=== PATIENT | female | born 1965 | race Caucasian/White ===

== ENCOUNTER 2019-11-09 | Emergency (ER) | payer OTHER ==
[~2019-11-09] MED LIST: NORCO1 TA1 PO
[2019-11-09 16:01] LABS: HEMOGLOBIN 12.6 g/dl (12.0-16.0); IMMATURE GRANULOCYTES 0.4 % (0.0-5.0); MEAN CELL VOLUME 87.7 fL CALC (80.0-100.0); MEAN CORPUSCULAR HGB 31.6 pG CALC (26.0-32.0); NEUT# 9.33 thou/uL (2.00-7.15); RED BLOOD COUNT 3.99 mill/uL (4.20-5.60); RED CELL DISTRI WIDTH 12.7 % (11.5-15.5)
[2019-11-09 16:19] LABS: ALKALINE PHOSPHATASE 80 u/l (38-126); AMYLASE 112 u/l (30-110); BILIRUBIN, TOTAL 0.7 mg/dL (0.0-1.4); BUN 15 mg/dL (7-17); BUN/CREATININE RATIO 27 (12-20 (CALC)); CHLORIDE 108 mmol/l (95-108); CREATININE 0.6 mg/dL (0.5-1.0); GFR > 60 ML/MIN (>=60 (CALC)); GFR FOR AFR.AMER. > 60 ML/MIN (>=60 (CALC)); LIPASE 84 u/l (23-300); POTASSIUM 3.9 mmol/l (3.5-5.1); SGOT/AST 27 u/l (14-36); SODIUM 141 mmol/l (137-146); TOTAL PROTEIN 8.1 g/dL (6.3-8.2)
[2019-11-09 16:20] LABS: ANION GAP 19 (6-22 (CALC)); CARBON DIOXIDE 18 mmol/l (22-30)
[2019-11-09] MEDS ORDERED: LIPITOR20 MG PO (18:06)
[2019-11-09] MEDS ORDERED: NORVASC5 M1 PO (18:06)
[2019-11-09] MEDS ORDERED: CIPROFLOXACN500 MG PO (19:05)
[2019-11-09] MEDS ORDERED: METRONIDAZOL500 MG PO (19:05)
[2019-11-09] MEDS ORDERED: LORTAB 5/3255 MG PO (19:05)
== END 2019-11-09 20:18 | disposition home or self-care (01) | DRG 392 ==
PROVIDERS: Family Medicine
DX: K57.30 Diverticulosis of large intestine without perforation or abscess without bleeding (principal); D72.829 Elevated white blood cell count, unspecified; I10 Essential (primary) hypertension; F17.200 Nicotine dependence, unspecified, uncomplicated

== ENCOUNTER 2021-11-12 11:09 | Observation (INO) | payer OTHER ==
[2021-11-12] VITALS (14 sets, daily range): BP systolic 85–181; BP diastolic 46–92
[~2021-11-12] VITALS: Ht 162.6 cm; Wt 88.0 kg
[~2021-11-12 11:09] MED LIST changes: +CIPROFLOXACN500 MG PO; +LIPITOR10 M1 PO; +LORTAB 5/3255 MG PO; +METRONIDAZOL500 MG PO; +NORVASC5 M1 PO
[2021-11-12 17:45] LABS: GFR > 60 ML/MIN (>=60 (CALC)); GFR FOR AFR.AMER. > 60 ML/MIN (>=60 (CALC))
[2021-11-12 17:52] LABS: HEMATOCRIT 38.2 % (37.0-47.0); HEMOGLOBIN 13.5 g/dl (12.0-16.0); IMMATURE GRANULOCYTES 0.3 % (0.0-5.0); MEAN CELL VOLUME 92.3 fL CALC (80.0-100.0); MEAN CORPUSCULAR HGB 32.6 pG CALC (26.0-32.0); MEAN CORPUSCULAR HGB CONC 35.3 g/dL CAL (32.0-36.0); NEUT# 15.15 thou/uL (2.00-7.15); RED BLOOD COUNT 4.14 mill/uL (4.20-5.60); RED CELL DISTRI WIDTH 12.6 % (11.5-15.5)
[2021-11-12 18:09] LABS: ALBUMIN 5.1 g/dL (3.2-5.0); ALKALINE PHOSPHATASE 92 u/l (38-126); ANION GAP 21 (6-22 (CALC)); BILIRUBIN, TOTAL 0.8 mg/dL (0.0-1.4); BUN 16 mg/dL (7-17); BUN/CREATININE RATIO 25 (12-20 (CALC)); CARBON DIOXIDE 18 mmol/l (22-30); CHLORIDE 108 mmol/l (95-108); CREATININE 0.7 mg/dL (0.5-1.0); GFR > 60 ML/MIN (>=60 (CALC)); GFR FOR AFR.AMER. > 60 ML/MIN (>=60 (CALC)); LIPASE 63 u/l (23-300); POTASSIUM 3.9 mmol/l (3.5-5.1); SGOT/AST 33 u/l (14-36); SODIUM 143 mmol/l (137-146); TOTAL PROTEIN 8.8 g/dL (6.3-8.2)
[2021-11-12 19:20] LABS: URINE BLOOD DIPSTICK LARGE (NEGATIVE); URINE GLUCOSE - DIPSTICK NEGATIVE (NEGATIVE); URINE KETONE >=80 mg/dL (NEGATIVE); URINE LEUK ESTERASE NEGATIVE (NEGATIVE); URINE PROTEIN - DIPSTICK 100 mg/dL (NEG-TRACE); URINE SPECIFIC GRAVITY >=1.030; URINE UROBILINOGEN - DIPSTICK 0.2 E.U./dL (0.2)
[2021-11-12 19:22] LABS: URINE BILIRUBIN - DIPSTICK SMALL (NEGATIVE); URINE COLOR DK. YELLOW; URINE NITRITE - DIPSTICK NEGATIVE (Negative); URINE RBC 50-100 RBC/hpf (0-5); URINE SQUAMOUS EPITHELIAL CELL FEW EPI/hpf (0-FEW)
[2021-11-13 04:00] VITALS: BP 118/70
[2021-11-13 06:20] LABS: HEMATOCRIT 32.8 % (37.0-47.0); MEAN CELL VOLUME 95.3 fL CALC (80.0-100.0); MEAN CORPUSCULAR HGB CONC 33.5 g/dL CAL (32.0-36.0); RED BLOOD COUNT 3.44 mill/uL (4.20-5.60); RED CELL DISTRI WIDTH 13.2 % (11.5-15.5)
[2021-11-13 06:36] LABS: ALKALINE PHOSPHATASE 60 u/l (38-126); BUN 15 mg/dL (7-17); BUN/CREATININE RATIO 22 (12-20 (CALC)); CHLORIDE 109 mmol/l (95-108); CREATININE 0.7 mg/dL (0.5-1.0); GFR > 60 ML/MIN (>=60 (CALC)); GFR FOR AFR.AMER. > 60 ML/MIN (>=60 (CALC)); POTASSIUM 3.9 mmol/l (3.5-5.1); SGOT/AST 23 u/l (14-36); SODIUM 139 mmol/l (137-146)
[2021-11-13 06:39] LABS: ALBUMIN 3.8 g/dL (3.2-5.0); ANION GAP 8 (6-22 (CALC)); BILIRUBIN, TOTAL 0.4 mg/dL (0.0-1.4); CARBON DIOXIDE 26 mmol/l (22-30); TOTAL PROTEIN 6.5 g/dL (6.3-8.2)
[2021-11-13 08:00] VITALS: BP 113/44
[2021-11-13 08:45] VITALS: BP 111/53
[2021-11-13] MEDS ORDERED: SG ASA LOW81 M1 PO (09:28)
[2021-11-13] MEDS ORDERED: FISH OIL1 CAP PO (09:30)
[2021-11-13] MEDS ORDERED: MAGNESIUM 250 M1 TAB PO (09:31)
[2021-11-13] MEDS ORDERED: CYANOCOBAL1000 MCG/M SC (09:34)
[2021-11-13 14:19] VITALS: BP 113/44
[2021-11-13 19:00] VITALS: BP 142/62
[2021-11-14 04:00] VITALS: BP 127/60
[2021-11-14 05:57] LABS: HEMATOCRIT 34.8 % (37.0-47.0); HEMOGLOBIN 11.8 g/dl (12.0-16.0); MEAN CELL VOLUME 94.8 fL CALC (80.0-100.0); MEAN CORPUSCULAR HGB 32.2 pG CALC (26.0-32.0); MEAN CORPUSCULAR HGB CONC 33.9 g/dL CAL (32.0-36.0); RED BLOOD COUNT 3.67 mill/uL (4.20-5.60); RED CELL DISTRI WIDTH 13.1 % (11.5-15.5)
[2021-11-14 06:24] LABS: ALBUMIN 4.2 g/dL (3.2-5.0); ALKALINE PHOSPHATASE 71 u/l (38-126); ANION GAP 10 (6-22 (CALC)); BILIRUBIN, TOTAL 0.5 mg/dL (0.0-1.4); BUN 12 mg/dL (7-17); BUN/CREATININE RATIO 16 (12-20 (CALC)); CARBON DIOXIDE 25 mmol/l (22-30); CHLORIDE 108 mmol/l (95-108); CREATININE 0.7 mg/dL (0.5-1.0); GFR > 60 ML/MIN (>=60 (CALC)); GFR FOR AFR.AMER. > 60 ML/MIN (>=60 (CALC)); MAGNESIUM 1.7 mg/dL (1.6-2.3); POTASSIUM 3.6 mmol/l (3.5-5.1); SGOT/AST 27 u/l (14-36); SODIUM 139 mmol/l (137-146); TOTAL PROTEIN 7.1 g/dL (6.3-8.2)
[2021-11-14 08:25] VITALS: BP 166/70
[2021-11-14 14:31] VITALS: BP 130/63
[2021-11-14 14:36] VITALS: BP 88/46
[2021-11-14 19:34] VITALS: BP 136/68
[2021-11-15 03:38] VITALS: BP 161/79
[2021-11-15 05:24] LABS: HEMATOCRIT 34.5 % (37.0-47.0); HEMOGLOBIN 11.7 g/dl (12.0-16.0); MEAN CELL VOLUME 93.5 fL CALC (80.0-100.0); MEAN CORPUSCULAR HGB 31.7 pG CALC (26.0-32.0); MEAN CORPUSCULAR HGB CONC 33.9 g/dL CAL (32.0-36.0); RED BLOOD COUNT 3.69 mill/uL (4.20-5.60); RED CELL DISTRI WIDTH 12.8 % (11.5-15.5)
[2021-11-15 05:46] LABS: ANION GAP 11 (6-22 (CALC)); BUN 10 mg/dL (7-17); BUN/CREATININE RATIO 14 (12-20 (CALC)); CARBON DIOXIDE 25 mmol/l (22-30); CHLORIDE 107 mmol/l (95-108); CREATININE 0.8 mg/dL (0.5-1.0); GFR > 60 ML/MIN (>=60 (CALC)); GFR FOR AFR.AMER. > 60 ML/MIN (>=60 (CALC)); MAGNESIUM 1.6 mg/dL (1.6-2.3); POTASSIUM 3.3 mmol/l (3.5-5.1); SODIUM 140 mmol/l (137-146)
[2021-11-15 08:35] VITALS: BP 164/80
[2021-11-15] MEDS ORDERED: CIPROFLOXACN500 MG PO (13:37)
[2021-11-15] MEDS ORDERED: METRONIDAZOLE500 MG PO (13:38)
[2021-11-15] MEDS ORDERED: ZOFRAN4 MG/TAB PO (13:39)
== END 2021-11-15 14:50 | disposition home or self-care (01) | DRG 872 ==
LOC: ED 11:09 → ED-I 19:19 → MS2 19:31 → ED 19:31 → MS2 11-15 14:50
PROVIDERS: Family Medicine; Nurse Practitioner; ADMIT Internal Medicine; ATTEND Internal Medicine
PROC: 05HM33Z Insertion of Infusion Device into Right Internal Jugular Vein, Percutaneous Approach (ICD-10-PCS; principal; 2021-11-12)
DX: A41.9 Sepsis, unspecified organism (principal); K57.30 Diverticulosis of large intestine without perforation or abscess without bleeding; I10 Essential (primary) hypertension; E78.5 Hyperlipidemia, unspecified; F17.200 Nicotine dependence, unspecified, uncomplicated; Z20.822 Contact with and (suspected) exposure to COVID-19
CPT/HCPCS: G0378; J1650; Q9967

== ENCOUNTER 2022-10-11 14:42 | Observation (INO) | payer SELFPAY ==
[~2022-10-11] VITALS: Ht 162.6 cm; Wt 79.0 kg
[~2022-10-11 14:42] MED LIST changes: +CYANOCOBAL1000 MCG/M SC; +FISH OIL1 CAP PO; +MAGNESIUM 250 M1 TAB PO; +METRONIDAZOLE500 MG PO; +SG ASA LOW81 M1 PO; +ZOFRAN4 MG/TAB PO
--- NOTE | 2022-10-11 14:45 | NUR ---
PATIENT TO ROOM VIA WHEELCHAIR
--- NOTE | 2022-10-11 15:30 | NUR ---
PATIENT NOTES ABDOMINAL PAIN. MD NOTIFIED
[2022-10-11 15:37] LABS: BASO% 0.2 % (0-3); EOS% 0.2 % (0-8); HEMATOCRIT 41.5 % (37.0-47.0); IMMATURE GRANULOCYTES 0.3 % (0.0-5.0); LYMPH% 17.2 % (15-41); MEAN CELL VOLUME 89.6 fL CALC (80.0-100.0); MEAN CORPUSCULAR HGB 32.4 pG CALC (26.0-32.0); MEAN CORPUSCULAR HGB CONC 36.1 g/dL CAL (32.0-36.0); MONO% 7.9 % (2-13); NEUT# 9.25 thou/uL (2.00-7.15); NEUT% 74.2 % (42-76); RED BLOOD COUNT 4.63 mill/uL (4.20-5.60); RED CELL DISTRI WIDTH 12.1 % (11.5-15.5)
[2022-10-11 15:53] LABS: ALBUMIN 5.5 g/dL (3.2-5.0); ALKALINE PHOSPHATASE 76 u/l (38-126); ANION GAP 16 (6-22 (CALC)); BILIRUBIN, TOTAL 0.8 mg/dL (0.02-1.3); BUN 17 mg/dL (7-17); BUN/CREATININE RATIO 21 (12-20 (CALC)); CARBON DIOXIDE 26 mmol/l (22-30); CHLORIDE 96 mmol/l (95-108); CREATININE 0.8 mg/dL (0.5-1.0); GFR FOR AFR.AMER. > 60 ML/MIN (>=60 (CALC)); GFR OTHER RACES > 60 ML/MIN (>=60 (CALC)); POTASSIUM 3.7 mmol/l (3.5-5.1); SGOT/AST 25 u/l (14-36); SODIUM 135 mmol/l (137-146); TOTAL PROTEIN 8.7 g/dL (6.3-8.2)
[2022-10-11 16:00] LABS: LIPASE 126 u/l (23-300)
--- NOTE | 2022-10-11 16:35 | NUR ---
Reassessment of patient completed. No distress noted.
--- NOTE | 2022-10-11 17:30 | NUR ---
Reassessment of patient completed. No distress noted.
--- NOTE | 2022-10-11 18:59 | NUR ---
Reassessment of patient completed. No distress noted.
--- NOTE | 2022-10-11 19:45 | NUR ---
HAND OFF REPORT RECEIVED, PATIENT AWAKE AND ALERT, AWAITING INPATIENT TREATMENT BED, FAMILY AT BEDSIDE.
[2022-10-11 20:09] LABS: URINE BILIRUBIN - DIPSTICK NEGATIVE (NEGATIVE); URINE BLOOD DIPSTICK NEGATIVE (NEGATIVE); URINE COLOR YELLOW; URINE GLUCOSE - DIPSTICK NEGATIVE (NEGATIVE); URINE KETONE 40 mg/dL (NEGATIVE); URINE LEUK ESTERASE SMALL (NEGATIVE); URINE NITRITE - DIPSTICK NEGATIVE (Negative); URINE PH 6.5 (4.5-8.0); URINE PROTEIN - DIPSTICK NEGATIVE (NEG-TRACE); URINE UROBILINOGEN - DIPSTICK 0.2 E.U./dL (0.2)
[2022-10-11 20:16] LABS: URINE RBC 0-2 RBC/hpf (0-5); URINE SQUAMOUS EPITHELIAL CELL FEW EPI/hpf (0-FEW)
--- NOTE | 2022-10-11 22:31 | NUR ---
PATIENT TO ROOM 286 WHEN PORTABLE EMAIL MARKETER AVAILABLE.
[2022-10-12] VITALS (8 sets, daily range): BP systolic 90–208; BP diastolic 54–110
--- NOTE | 2022-10-12 02:16 | NUR ---
PATIENT BROUGHT TO UNIT BY WHEELCHAIR FROM ED, PATIENT AWAKE AND ALERT, NO C/O PAIN OR DISCOMFORT, NO S/S OF DISTRESS NOTED, AMBULATORY WITHOUT ASSISTANCE, VITALS AND WEIGHT TAKEN, PATIENT SETTLED FOR EVENING. RESPIRATIONS EVEN AND UNLABORED ON ROOM AIR.
[2022-10-12 05:53] LABS: BASO% 0.2 % (0-3); EOS% 0.7 % (0-8); IMMATURE GRANULOCYTES 0.4 % (0.0-5.0); LYMPH% 22.6 % (15-41); MEAN CELL VOLUME 92.2 fL CALC (80.0-100.0); MEAN CORPUSCULAR HGB 32.5 pG CALC (26.0-32.0); MEAN CORPUSCULAR HGB CONC 35.2 g/dL CAL (32.0-36.0); MONO% 10.5 % (2-13); NEUT# 6.87 thou/uL (2.00-7.15); NEUT% 65.6 % (42-76); RED BLOOD COUNT 3.48 mill/uL (4.20-5.60); RED CELL DISTRI WIDTH 12.4 % (11.5-15.5)
[2022-10-12 05:55] LABS: HEMATOCRIT 32.1 % (37.0-47.0); HEMOGLOBIN 11.3 g/dl (12.0-16.0)
[2022-10-12 06:25] LABS: ALKALINE PHOSPHATASE 52 u/l (38-126); ANION GAP 10 (6-22 (CALC)); BILIRUBIN, TOTAL 0.5 mg/dL (0.02-1.3); BUN 12 mg/dL (7-17); BUN/CREATININE RATIO 18 (12-20 (CALC)); CARBON DIOXIDE 27 mmol/l (22-30); CHLORIDE 103 mmol/l (95-108); CREATININE 0.7 mg/dL (0.5-1.0); GFR FOR AFR.AMER. > 60 ML/MIN (>=60 (CALC)); GFR OTHER RACES > 60 ML/MIN (>=60 (CALC)); POTASSIUM 3.5 mmol/l (3.5-5.1); SGOT/AST 18 u/l (14-36); SODIUM 136 mmol/l (137-146)
[2022-10-12 06:28] LABS: ALBUMIN 3.6 g/dL (3.2-5.0)
--- NOTE | 2022-10-12 07:33 | NUR ---
Receive report from Gracy MEÉLNDEZ.
--- NOTE | 2022-10-12 08:00 | NUR ---
Alert and oriented patient x3. Resting in bed, stable at the time of this note. Patient does not refer pain at the moment. No distress is observed. Patient reports nausea and discomfort in the stomach. PRN medications are verified. Medicine for nausea is given and Dr. Barrera is informed. Patient is oriented and educated about the nursing plan, fall precautions and medications for today. Patient refers to understanding. Safety and fall precautions in place. Call light within reach.
[2022-10-12] MEDS ORDERED: AMLODIPINE BESY10 MG PO (11:48)
--- NOTE | 2022-10-12 12:00 | NUR ---
Patient resting in bed with eyes closed. High blood pressure at the time of this note. Manual reassessment. Dr. Barrera is informed who issues order for blood pressure medication. Preventive rounds every hour for safety and satisfaction of the patient's needs.
--- NOTE | 2022-10-12 16:00 | NUR ---
Patient resting in bed. Stable at this time. any pain or sob
[2022-10-12 18:37] LABS: HEMATOCRIT 34.2 % (37.0-47.0); HEMOGLOBIN 12.4 g/dl (12.0-16.0)
[2022-10-13 05:14] VITALS: BP 130/75
[2022-10-13 06:44] VITALS: BP 117/68
--- NOTE | 2022-10-13 07:00 | NUR ---
Receive report from [facility].
--- NOTE | 2022-10-13 08:00 | NUR ---
Alert and oriented patient x3. Resting in bed, stable at the time of this note. Patient does not refer pain at the moment. No distress is observed. Patient is oriented and educated about the nursing plan, fall precautions and medications for today. Patient refers to understanding. Safety and fall precautions in place. Call light within reach.
[2022-10-13 08:12] VITALS: BP 117/68
--- NOTE | 2022-10-13 09:31 | NUR ---
PRELIMINARY BLOOD CULTURE SHOWS GRAM POSITIVE COCCI IN 2/4 VIALS[address] RESULTS REPORT[address] TO [address] MENJIVAR. PATIENT RECEIVING LEVAQUIN 750MG Q24H. NO NEW ORDERS. WILL FOLLOW UP WHEN FINAL RESULTS AVAILABLE.
[2022-10-13 10:19] VITALS: BP 121/66
--- NOTE | 2022-10-13 12:00 | NUR ---
Patient resting with eyes closed. stable at the time of writing.
[2022-10-13 12:02] LABS: HEMATOCRIT 32.4 % (37.0-47.0); HEMOGLOBIN 11.4 g/dl (12.0-16.0); MEAN CELL VOLUME 92.3 fL CALC (80.0-100.0); MEAN CORPUSCULAR HGB 32.5 pG CALC (26.0-32.0); MEAN CORPUSCULAR HGB CONC 35.2 g/dL CAL (32.0-36.0); RED BLOOD COUNT 3.51 mill/uL (4.20-5.60); RED CELL DISTRI WIDTH 12.4 % (11.5-15.5)
[2022-10-13 12:27] LABS: ALBUMIN 3.6 g/dL (3.2-5.0); ALKALINE PHOSPHATASE 56 u/l (38-126); ANION GAP 9 (6-22 (CALC)); BILIRUBIN, TOTAL 0.4 mg/dL (0.02-1.3); BUN 6 mg/dL (7-17); BUN/CREATININE RATIO 10 (12-20 (CALC)); CARBON DIOXIDE 28 mmol/l (22-30); CHLORIDE 103 mmol/l (95-108); CREATININE 0.6 mg/dL (0.5-1.0); GFR FOR AFR.AMER. > 60 ML/MIN (>=60 (CALC)); GFR OTHER RACES > 60 ML/MIN (>=60 (CALC)); POTASSIUM 3.5 mmol/l (3.5-5.1); SGOT/AST 21 u/l (14-36); SODIUM 136 mmol/l (137-146); TOTAL PROTEIN 5.9 g/dL (6.3-8.2)
[2022-10-13 14:24] VITALS: BP 98/59
--- NOTE | 2022-10-13 16:16 | NUR ---
PATIENT RESTING ON BED STABLE AT THIS TIME. SAFETY AND FALL PRECAUTIONS IN PLACE. CALL LIGHT WITHIN IN REACH.
[2022-10-13 18:43] VITALS: BP 113/64
--- NOTE | 2022-10-13 20:00 | NUR ---
RECEIVED REPORT FROM DAY SHIFT RN. PT RESTING IN BED IN LOW SEMI-LYNNE'S POSITION, AWAKE, WATCHING TV. ASSESSMENT COMPLETED. PT DENIES ANY PAIN AT THIS TIME. SHE DID STATE SHE HAD SOME DISCOMFORT IN HER LOWER ABDOMEN, DID NOT WANT ANY MEDICATION FOR IT. RIJ ALL 3 LUMENS ARE PATENT AND FLUSHES WELL. TELEMETRY IN PLACE, MONITORED BY ED. PT IS ON ROOM AIR, BREATHING IS EVEN AND UNLABORED. CALL LIGHT AND BEDSIDE TABLE WITHIN REACH, SAFETY PRECAUTIONS IN PLACE.
--- NOTE | 2022-10-14 | NUR ---
PT RESTING IN BED IN LOW SEMI-LYNNE'S POSITION, AWAKE, WATCHING TV. PT DENIES ANY PAIN OR DISCOMFORT AT THIS TIME. BREATHING EVEN AND UNLABORED. TELEMETRY IN PLACE. CALL LIGHT AND BEDSIDE TABLE WITHIN REACH, SAFETY PRECAUTIONS IN PLACE.
[2022-10-14 00:02] VITALS: BP 100/59
--- NOTE | 2022-10-14 04:00 | NUR ---
PT RESTING IN BED IN LOW SEMI-LYNNE'S POSITION, AWAKE, WATCHING TV. PT IS A&OX3 AND ABLE TO MAKE NEEDS KNOWN. PT DENIES ANY PAIN OR DISCOMFORT AT THIS TIME. ON ROOM AIR, BREATHING EVEN AND UNLABORED. IJ ALL 3 LUMENS ARE PATENT AND FLUSH WELL. TELEMETRY IN PLACE, MONITORED BY ED. CALL LIGHT AND BEDSIDE TABLE WITHIN REACH, SAFETY PRECAUTIONS IN PLACE.
[2022-10-14 04:15] VITALS: BP 106/58
[2022-10-14 05:34] LABS: HEMATOCRIT 30.5 % (37.0-47.0); HEMOGLOBIN 10.7 g/dl (12.0-16.0); MEAN CELL VOLUME 92.1 fL CALC (80.0-100.0); MEAN CORPUSCULAR HGB 32.3 pG CALC (26.0-32.0); MEAN CORPUSCULAR HGB CONC 35.1 g/dL CAL (32.0-36.0); RED BLOOD COUNT 3.31 mill/uL (4.20-5.60); RED CELL DISTRI WIDTH 12.5 % (11.5-15.5)
[2022-10-14 05:53] LABS: ALBUMIN 3.3 g/dL (3.2-5.0); ALKALINE PHOSPHATASE 47 u/l (38-126); ANION GAP 5 (6-22 (CALC)); BILIRUBIN, TOTAL 0.3 mg/dL (0.02-1.3); BUN 6 mg/dL (7-17); BUN/CREATININE RATIO 9 (12-20 (CALC)); CARBON DIOXIDE 27 mmol/l (22-30); CHLORIDE 108 mmol/l (95-108); CREATININE 0.6 mg/dL (0.5-1.0); GFR FOR AFR.AMER. > 60 ML/MIN (>=60 (CALC)); GFR OTHER RACES > 60 ML/MIN (>=60 (CALC)); MAGNESIUM 1.7 mg/dL (1.6-2.3); POTASSIUM 3.3 mmol/l (3.5-5.1); SGOT/AST 18 u/l (14-36); SODIUM 137 mmol/l (137-146); TOTAL PROTEIN 5.7 g/dL (6.3-8.2)
[2022-10-14 06:23] VITALS: BP 123/68
[2022-10-14 07:26] VITALS: BP 123/68
--- NOTE | 2022-10-14 07:45 | NUR ---
RECIEVED REPORT FROM NIGHTSHIFT NURSE. PT NOTED LAYING DOWN SUPINE IN BED. PT DENIES ANY PAIN AT THIS TIME BUT STATES DISCOMFORT IN ABD. REFUSES ANY PAIN MEDS. TRIPLE LUMEN CATHETER IN RT JUGULAR NOTED. FLUIDS RUNNING PER EMAR. PT IS A/OX3. ASSESSMENT COMPLETED. CALL LIGHT WITHIN REACH AND SAFETY PRECAUTIONS IN PLACE.
[2022-10-14] MEDS ORDERED: CIPROFLOXACN500 MG PO (10:37)
[2022-10-14] MEDS ORDERED: METRONIDAZOLE500 MG PO (10:37)
[2022-10-14 10:59] VITALS: BP 108/56
--- NOTE | 2022-10-14 12:00 | NUR ---
PT SITTING UP IN BED, EATING LUNCH. DENIES ANY PAIN. CALL LIGHT WITHIN REACH AND SAFETY PRECAUTIONS IN PLACE.
--- NOTE | 2022-10-14 12:30 | NUR ---
Central line is removed under sterile measures. Patient free of pain, free of bleeding. It is observed for changes.
--- NOTE | 2022-10-14 13:33 | NUR ---
Discharge instructions given. Patient verbalizes understanding of same. Discharged in stable condition via Wheelchair to Home with staff. All belongings sent with pt. TRIPLE LUMEN CATHTETER REMOVED BY MEDHAT CARLSON.
== END 2022-10-14 13:33 | disposition home or self-care (01) | DRG 392 ==
LOC: ED 14:42 → ED-I 18:15 → ED 18:30 → MS2 18:31
PROVIDERS: Family Medicine; Internal Medicine; ADMIT Internal Medicine; ATTEND Internal Medicine
PROC: 05HM33Z Insertion of Infusion Device into Right Internal Jugular Vein, Percutaneous Approach (ICD-10-PCS; principal; 2022-10-11)
DX: K57.90 Diverticulosis of intestine, part unspecified, without perforation or abscess without bleeding (principal); I10 Essential (primary) hypertension; E78.00 Pure hypercholesterolemia, unspecified; F17.210 Nicotine dependence, cigarettes, uncomplicated; Z87.442 Personal history of urinary calculi; Z20.822 Contact with and (suspected) exposure to COVID-19
CPT/HCPCS: G0378; J1650; Q9967